=== PATIENT | female | born 1960 | race Caucasian/White ===

== ENCOUNTER 2018-05-17 09:05 | Emergency (ER) | payer MEDICAID ==
[2018-05-17] MEDS ORDERED: NS 1,000 ML IV ONE ×3 (09:49→11:22)
[2018-05-17] MEDS ORDERED: ONDANSETRON 4 MG/2 ML VIAL IVP ONE (10:01)
[2018-05-17] MEDS ORDERED: KETOROLAC 15 MG/1 ML SDV IVP ONE (10:11)
--- NOTE | 2018-05-17 10:11 | EDPHY ---
H & P Stated Complaint: n/v/d cough x 3 days Time Seen by Provider: 05/17/18 10:00 HPI/ROS: CHIEF COMPLAINT: Cough, nausea HISTORY OF PRESENT ILLNESS: 57-year-old female with COPD presents with cough and nausea. Onset of a dry cough 3 days ago. Associated with a 2 day history of myalgias, subjective fever, excessive fatigue and nausea. Tolerating oral fluids well,, but has lack of appetite. Loose stools x3 yesterday. Received a flu vaccination this year. Using albuterol inhaler at home frequently. No shortness of breath or wheezing now. REVIEW OF SYSTEMS: complete 10 point ROS reviewed and is negative except for the noted elements in the HPI Source: Patient - Personal History Current Tetanus Diphtheria and Acellular Pertussis (TDAP): Yes - Medical/Surgical History Hx Asthma: No Hx Chronic Respiratory Disease: Yes Hx Diabetes: No Hx Cardiac Disease: No Hx Renal Disease: No Hx Cirrhosis: No Hx Alcoholism: No Hx HIV/AIDS: No Hx Splenectomy or Spleen Trauma: No Other PMH: copd - Social History Smoking Status: Current every day smoker Alcohol Use: Sober Drug Use: None - Physical Exam Exam: General Appearance: Alert, pleasant, nontoxic-appearing Eyes: Pupils equal and round, no conjunctival pallor or injection ENT, Mouth: Mucous membranes dry Neck: Normal inspection Respiratory: Faint Rhonchi right lower lung field Cardiovascular: Regular rate and rhythm Gastrointestinal: Abdomen is soft and nontender Neurological: A&O, nonfocal exam Skin: Warm and dry, no rash Extremities: Nontender, no pedal edema Psychiatric: Mood and affect normal Constitutional: Initial Vital Signs Temperature (C) 37 C 05/17/18 09:08 Heart Rate 92 05/17/18 09:08 Respiratory Rate 18 05/17/18 09:08 Blood Pressure 105/89 H 05/17/18 09:08 O2 Sat (%) 92 05/17/18 09:08 O2 Delivery Mode Room Air Allergies/Adverse Reactions: No Known Allergies Allergy (Unverified 05/17/18 09:07) Home Medications: Medication Instructions Recorded Effexor Xr 05/17/18 Ondansetron Odt [Zofran Odt 4 mg 4 mg PO Q4 PRN #6 tab 05/17/18 (*)] levOFLOXACIN [levAQUIN (*)] 750 mg PO DAILY #10 tab 05/17/18 Medical Decision Making - Diagnostics Imaging Results: Imaging Impressions Chest X-Ray 05/17/18 10:01 Impression: Right upper lobe anterior segment mass +- pneumonia and adenopathy. Please see above. Recommend CT with IV contrast for further evaluation. A message was left with Adan for Dr. White at 11:[address] 05/17/18 11:27 Impression: 1. Right perihilar/suprahilar consolidation. Given clinical presentation and additional findings of hazy nodules in the right middle lobe and consolidation in the right lung base, finding is most likely multifocal pneumonia. Recommend follow-up chest CT after treatment (no later than 1-2 months) to ensure that these findings improve. If the perihilar abnormality remains, suspicion for underlying malignancy would increase and biopsy should be considered. 2. Mediastinal and hilar adenopathy, likely reactive. 3. Superior compression deformity of T11, the known chronicity. 4. Centrilobular and paraseptal emphysema. Findings and recommendations discussed with TRUMAN WHITE at 12:00 hour, 2018. Imaging: Discussed imaging studies w/ call or contact centre operator Radiologist ED Course/Re-evaluation: This patient presents with a flu-like illness and dehydration. IV normal saline 1 L given. Labs, flu swab and chest x-ray ordered. Zofran 4 mg IV and Toradol 15 mg IV ordered for symptomatic relief. Chest x-ray reveals a right upper lobe infiltrate and possibly a right upper lobe mass. Blood cultures were drawn and Rocephin and Zithromax IV given. CT of the chest with IV contrast obtained and reveals pneumonia, no definite mass visualized. Results discussed with the patient. I advised admission because of multifocal pneumonia. However the patient declines. She is a competent decision maker and clearly understands the risks and benefits of this decision. Warning signs discussed. Will follow up with PCP in 2 days for recheck. Levaquin prescribed. Differential Diagnosis: Differential diagnosis includes pyelonephritis, cholecystitis, influenza, cellulitis, pneumonia, abscess, meningitis. - Data Points Laboratory Results: Laboratory Results 05/17/18 09:50 05/17/18 09:50 05/17/18 05/17/18 05/17/18 11:20 09:50 09:50 WBC 7.78 10^3/uL 10^3/uL (3.80-9.50) RBC 4.96 10^6/uL 10^6/uL (4.18-5.33) Hgb 14.7 g/dL g/dL (12.6-16.3) Hct 43.1 % % (38.0-47.0) MCV 86.9 fL fL (81.5-99.8) MCH 29.6 pg pg (27.9-34.1) MCHC 34.1 g/dL g/dL (32.4-36.7) RDW 12.8 % % (11.5-15.2) Plt Count 135 10^3/uL L 10^3/uL (150-400) MPV 11.4 fL fL (8.7-11.7) Neut % (Auto) 85.0 % H % (39.3-74.2) Lymph % (Auto) 9.8 % L % (15.0-45.0) Coffee % (Auto) 4.4 % L % (4.5-13.0) Eos % (Auto) 0.0 % L % (0.6-7.6) Baso % (Auto) 0.4 % % (0.3-1.7) Nucleat RBC Rel Count 0.0 % % (0.0-0.2) Absolute Neuts (auto) 6.62 10^3/uL H 10^3/uL (1.70-6.50) Absolute Lymphs (auto) 0.76 10^3/uL L 10^3/uL (1.00-3.00) Absolute Monos (auto) 0.34 10^3/uL 10^3/uL (0.30-0.80) Absolute Eos (auto) 0.00 10^3/uL L 10^3/uL (0.03-0.40) Absolute Basos (auto) 0.03 10^3/uL 10^3/uL (0.02-0.10) Absolute Nucleated RBC 0.00 10^3/uL 10^3/uL (0-0.01) Immature Gran % 0.4 % % (0.0-1.1) Immature Gran # 0.03 10^3/uL 10^3/uL (0.00-0.10) VBG Lactic Acid 0.7 mmol/L mmol/L (0.7-2.1) Sodium 132 mEq/L L mEq/L (135-145) Potassium 3.8 mEq/L mEq/L (3.5-5.2) Chloride 105 mEq/L mEq/L (97-110) Carbon Dioxide 22 mEq/l mEq/l (22-31) Anion Gap 5 mEq/L L mEq/L (6-14) BUN 17 mg/dL mg/dL (7-23) Creatinine 0.8 mg/dL mg/dL (0.6-1.0) Estimated GFR > 60 Glucose 121 mg/dL H mg/dL (70-100) Calcium 8.3 mg/dL L mg/dL (8.5-10.4) Nasal Influenza A PCR Nasal Influenza B PCR 05/17/18 09:11 WBC RBC Hgb Hct MCV MCH MCHC RDW Plt Count MPV Neut % (Auto) Lymph % (Auto) Coffee % (Auto) Eos % (Auto) Baso % (Auto) Nucleat RBC Rel Count Absolute Neuts (auto) Absolute Lymphs (auto) Absolute Monos (auto) Absolute Eos (auto) Absolute Basos (auto) Absolute Nucleated RBC Immature Gran % Immature Gran # VBG Lactic Acid Sodium Potassium Chloride Carbon Dioxide Anion Gap BUN Creatinine Estimated GFR Glucose Calcium Nasal Influenza A PCR NEGATIVE FOR FLU A (NEGATIVE) Nasal Influenza B PCR NEGATIVE FOR FLU B (NEGATIVE) Medications Given: Discontinued Medications Sodium Chloride (Ns) 1,000 mls @ 0 mls/hr IV EDNOW ONE; Wide Open PRN Reason: Protocol Stop: 05/17/18 09:50 Last Admin: 05/17/18 09:49 Dose: 1,000 mls Azithromycin 500 mg/ Sodium (Chloride) 255 mls @ 255 mls/hr IV EDNOW ONE PRN Reason: Protocol Stop: 05/17/18 12:09 Last Admin: 05/17/18 12:12 Dose: 255 mls Ceftriaxone Sodium/Dextrose (Rocephin 1 Gm (Premix)) 50 mls @ 100 mls/hr IV EDNOW ONE PRN Reason: Protocol Stop: 05/17/18 11:38 Last Admin: 05/17/18 11:31 Dose: 50 mls Sodium Chloride (Ns) 1,000 mls @ 0 mls/hr IV ONCE ONE; Wide Open PRN Reason: Protocol Stop: 05/17/18 11:14 Last Admin: 05/17/18 11:28 Dose: 1,000 mls Sodium Chloride (Ns) 1,000 mls @ 0 mls/hr IV EDNOW ONE; Wide Open PRN Reason: Protocol Stop: 05/17/18 11:23 Last Admin: 05/17/18 11:38 Dose: Not Given Ketorolac Tromethamine (Toradol) 15 mg IVP EDNOW ONE Stop: 05/17/18 10:12 Last Admin: 05/17/18 10:13 Dose: 15 mg Ondansetron HCl (Zofran) 4 mg IVP EDNOW ONE Stop: 05/17/18 10:02 Last Admin: 05/17/18 10:13 Dose: 4 mg Departure - Departure Disposition: Home, Routine, Self-Care Clinical Impression: Pneumonia Qualifiers: Pneumonia type: due to unspecified organism Laterality: right Lung location: unspecified part of lung Qualified Code(s): J18.9 - Pneumonia, unspecified organism Condition: Good Instructions: Bacterial Pneumonia (ED) Additional Instructions: Drink plenty of fluids. Return for worsening symptoms, including shortness of breath, vomiting or any concerns. Follow-up with your physician in 2 days for recheck. You will need a repeat chest x-ray after the pneumonia clears up. Referrals: Eliza Mary NP [Primary Care Provider] - As per Instructions Prescriptions: levOFLOXACIN [levAQUIN (*)] 750 mg PO DAILY #10 tab Ondansetron Odt [Zofran Odt 4 mg (*)] 4 mg PO Q4 PRN #6 tab PRN Reason: Nausea
[2018-05-17 10:13] LABS: PLATELET COUNT 135 10^3/uL (150-400)
[2018-05-17] MEDS ORDERED: AZITHROMYCIN IV 500 MG in NS 250 ML IV ONE (11:10)
[2018-05-17] MEDS ORDERED: IOPAMIDOL (ISOVUE-300) 100 ML BTL ONE (11:37)
[2018-05-17 13:37] VITALS: BP 100/78
== END 2018-05-17 13:35 | disposition home or self-care (01) ==
DX: J18.9 Pneumonia, unspecified organism (principal); J44.9 Chronic obstructive pulmonary disease, unspecified; E86.9 Volume depletion, unspecified; R11.0 Nausea; M79.10 Myalgia, unspecified site; F17.200 Nicotine dependence, unspecified, uncomplicated
CPT/HCPCS: 96365; J0456; J0696; J1885; J2405; Q9967